=== PATIENT | female | born 1990 | race Caucasian/White ===

== ENCOUNTER 2016-12-05 09:25 | Inpatient (IN) | payer OTHER ==
[2016-12-05 10:30] LABS: CREATININE,RANDOM URINE 213 mg/dL
--- NOTE | 2016-12-05 14:00 | US ---
OB FOLLOW UP COMPARISON: None. HISTORY: 26 years old. Assess for intrauterine growth retardation. Check amniotic fluid index. Gestational age 36 weeks 6 days. FINDINGS: Gestation: Single. Position: Cephalic. Placenta: Posterior. No previa. No abruption. Maturation grade II. Amniotic fluid index: 9.6 cm Biometry BPD: 8.7 cm = 35 weeks 0 days. 15th percentile HC: 31.2 cm = 34 weeks 6 days. 2nd percentile AC: 31.5 cm = 35 weeks 3 days 23rd percentile FL: 6.5 cm = 33 weeks 3 days. Less than 2nd percentile. Ultrasound mean gestational age: 34 weeks 5 days Estimated weight: 2516 +/- 377 g (24th percentile based on gestational age, 62nd percentile based on ultrasound). Ultrasound EDC: 01/11/2017. Heart rate: 141 bpm IMPRESSION: 1. Average ultrasound age 34 weeks 5 days, compared to 36 weeks 6 days obtained initially. Estimated weight 24th percentile based on gestational age. The results were discussed with Angelica Napoles M.D., 12/05/2016 at 13:55
[2016-12-05] MEDS: GUAIFENESIN-DEXTROMETHORPHAN 100/10 MG/5 ML (120 ML BOT) PO PRN ×2 (14:36→22:54)
[2016-12-05] MEDS ORDERED: SODIUM CHLORIDE 0.9% FLUSH 10 ML ONE (14:57)
[2016-12-05] MEDS ORDERED: IV START KIT ONE ×2 (14:57→19:34)
[2016-12-05] MEDS ORDERED: DINOPROSTONE 10 MG SUP VG ONE (19:01)
[2016-12-05] MEDS ORDERED: LACTATED RINGERS 1,000 ML ONE (19:35)
[2016-12-05] MEDS ORDERED: OXYTOCIN 10 UNITS/ML VIAL ONE (19:35)
[2016-12-05] MEDS ORDERED: LIDOCAINE Viscous 2% 15 ML UDCUP ONE (19:36)
[2016-12-05] MEDS ORDERED: PUMP TUBING ONE (19:36)
[2016-12-05] MEDS ORDERED: LIDOCAINE 1% (PRES FREE) 30 ML VIAL ONE (19:36)
[2016-12-05] MEDS ORDERED: MINERAL OIL 25 ML BOT ONE (19:36)
[2016-12-05] MEDS ORDERED: OXYTOCIN IN LR 0 ML IV ONE (19:36)
[2016-12-05 20:49] VITALS: BMI 39.4
--- NOTE | 2016-12-05 22:09 | PCMAN ---
OB Admission Note - History : 1 Term: 0 : 0 Abortions (S&E): 0 Livin Gestational Age (weeks): 36 Days (#/7): 6 Admit Cervical Dilation:: 0 Admit Cervical Effacement (%):: 0 Admit Station:: -3 Admit Presentaton:: vtx Membrane Status: Intact Contractions: No Heart Rate:: 130 Status:: category 1 EFW:: 2516 Summary of Course:: Uncomplicated with dates calculated by LMP, confirmed by 20 week US until earlier this week when BP sung above her baseline 110/70 to 124/84 and she had developed edema in the last few weeks. Urine protein was 1+ on the dip , sent for M/C ratio and was 57 yesterday so she was asked to return today and her CBC in the office was abnormal with low platelet result so she was sent here for further evaluation. - Labs Blood Type: B (+) positive Rubella Status: Immune GBS Status: Negative Abnormal Labs: None, Other (1 hr GTT 143, 3 hr [phone]) - Review of Systems Headache and blurred vision off and on. NO contractions. - Physical Exam General: Afebrile, No Acute Distress Psych/Mental Status: Mood/Affect Appropriate Neurological: Grossly Intact, Alert, Oriented x 4, Normal Speech HEENT: Atraumatic, PERRLA, EOMI, Mucous membr. moist/pink Lungs: Clear to Auscultation Bilaterally Cardiovascular: Regular Rate and Rhythm, No Murmur Abdomen: Normal Bowel Sounds Genitourinary: Normal Female Genitalia Extremities: Full ROM, Edema (1+ in ankles bilaterally) DTR: Patellar (L): 2+ (Brisk, Normal), Patellar (R): 2+ (Brisk, Normal) Skin: Normal Color, No Rash - Problems (1) 37 weeks gestation of Status: Acute Code: Z3A.37Assessment/Plan: 36 6/7 on admit, GBS negative. Induction with Prostaglandin to start, then selection of further medication to follow. Expecting an (2) Pre-eclampsia affecting , antepartum Status: Acute Code: O14.90Assessment/Plan: Mild in severity at this time with normal PIH panel but abnormal M/C ratio 2 days ago. Decision made for induction so 24 hour urine was cancelled. Will repeat PIH panel in am
[2016-12-05] MEDS: ACETAMINOPHEN 500 MG TABLET PO PRN (22:54)
[2016-12-06] MEDS: ZOLPIDEM TARTRATE 5 MG TABLET PO PRN ×2 (00:03→23:22)
[2016-12-06] MEDS: GUAIFENESIN-DEXTROMETHORPHAN 100/10 MG/5 ML (120 ML BOT) PO PRN ×2 (05:03→17:33)
[2016-12-06] MEDS: ACETAMINOPHEN 500 MG TABLET PO PRN ×2 (05:03→17:35)
[2016-12-06 06:47] LABS: ABSOLUTE NEUTROPHIL COUNT 8.8 K/mm3 (1.8-7.7); BASO # 0.1 K/mm3 (0.0-0.2); BASO % 0.5 % (0.2-1.0); EOS # 0.2 (0.0-0.5); EOS % 1.2 % (0.9-2.9); HEMATOCRIT 36.6 % (37.0-47.0); HEMOGLOBIN 12.2 gm/l (12.0-16.0); IMM NEUT # 0.1 K/mm3 (0-0.2); IMM NEUT% 0.6 % (0-1); LYMPH # 2.7 (1.0-4.8); LYMPH % 21.5 % (15-45); MEAN CELL VOLUME 89.1 fl (81.0-99.0); MEAN CORPUSCULAR HEMOGLOBIN 29.7 pg (27.0-31.0); MEAN CORPUSCULAR HGB CONC 33.3 g/dl (33.0-37.0); MONO # 0.7 (0.0-0.8); MONO % 5.8 % (4-12); NEUT % 70.4 % (43-75); PLATELET COUNT 141 K/mm3 (130-400); RED CELL DISTRIBUTION WIDTH 12.7 % (11.5-14.5)
[2016-12-06 07:07] LABS: ALBUMIN 3.2 gm/dL (3.5-5.7); CALCIUM 8.9 mg/dL (8.6-10.3)
[2016-12-06] MEDS ORDERED: MISOPROSTOL 25 MCG TABLET ONE (10:42)
[2016-12-06] MEDS: MISOPROSTOL 25 MCG TABLET VG SCH ×2 (16:14→20:40)
[2016-12-06] MEDS: SERTRALINE HCL 50 MG TABLET PO SCH (18:58)
[2016-12-07] MEDS: ACETAMINOPHEN 500 MG TABLET PO PRN (07:33)
[2016-12-07] MEDS: GUAIFENESIN-DEXTROMETHORPHAN 100/10 MG/5 ML (120 ML BOT) PO PRN (07:33)
[2016-12-07] MEDS: SERTRALINE HCL 50 MG TABLET PO SCH (09:48)
[2016-12-07] MEDS: MISOPROSTOL 25 MCG TABLET VG SCH (09:54)
[2016-12-07 12:06] LABS: CREATININE,RANDOM URINE 156 mg/dL
[2016-12-07 12:39] LABS: ABSOLUTE NEUTROPHIL COUNT 12.8 K/mm3 (1.8-7.7); BASO # 0.1 K/mm3 (0.0-0.2); BASO % 0.3 % (0.2-1.0); EOS # 0.1 (0.0-0.5); EOS % 0.5 % (0.9-2.9); HEMATOCRIT 38.2 % (37.0-47.0); HEMOGLOBIN 12.8 gm/l (12.0-16.0); IMM NEUT # 0.1 K/mm3 (0-0.2); IMM NEUT% 0.6 % (0-1); LYMPH # 1.9 (1.0-4.8); LYMPH % 12.3 % (15-45); MEAN CELL VOLUME 89.3 fl (81.0-99.0); MEAN CORPUSCULAR HEMOGLOBIN 29.9 pg (27.0-31.0); MEAN CORPUSCULAR HGB CONC 33.5 g/dl (33.0-37.0); MEAN PLATELET VOLUME 14.5 fl (7.4-10.4); MONO # 0.7 (0.0-0.8); MONO % 4.7 % (4-12); NEUT % 81.6 % (43-75); PLATELET COUNT 160 K/mm3 (130-400); RED CELL DISTRIBUTION WIDTH 12.7 % (11.5-14.5)
[2016-12-07 12:49] LABS: ALBUMIN 3.5 gm/dL (3.5-5.7); CALCIUM 9.5 mg/dL (8.6-10.3); URIC ACID 5.1 mg/dL (2.3-7.6)
[2016-12-07] MEDS ORDERED: LACTATED RINGERS 500 ML IV ONE (13:05)
--- NOTE | 2016-12-07 13:26 | PDOC36 ---
Provider Note Subject: 10:00 progress note: S/ Slept well last night, lower abdominal cramping. Resistant to vaginal checks from nursing staff. O/ VSS BP improved, afebrile. UC irreg. CX 1cm/75-80%/-1 FHR BL 130s, moderate variability 50 mcg Misoprostol placed intravaginally. A/ Slow progress with induction P/ Hoping to progress to amniotomy within a few hours. Watch vitals and labs. Hai Napoles MD
[2016-12-07] MEDS ORDERED: LIDOCAINE Viscous 2% 15 ML UDCUP TP ONE (15:08)
[2016-12-07] MEDS: LACTATED RINGERS 1,000 ML IV SCH ×3 (15:22→20:14)
[2016-12-07] MEDS ORDERED: FENTANYL 100 MCG/2 ML VIAL IV ONE (16:22)
[2016-12-07] MEDS ORDERED: CEFAZOLIN SODIUM 2 GRAM DUPLEX 50 ML IV ONE (16:23)
[2016-12-07] MEDS ORDERED: SPINAL PROCEDURAL TRAY 1 EACH ONE (16:33)
[2016-12-07] MEDS ORDERED: MORPHINE SULFATE (DURAMORPH) 1 MG/ML 10ML AMP ONE (16:33)
[2016-12-07] MEDS ORDERED: BUPIVACAINE 0.75% SPINAL AMPUL 2 ML ONE (16:33)
--- NOTE | 2016-12-07 16:36 | PDOC36 ---
Provider Note Subject: S/ Contractions becoming much more painful, patient asking about pain medicine and epidural. O/ BP 139/71, DTR 2-3+, 1 beat clonus(stable) FHR BL 150-155, minimal variability, variable decels, category 2 Cx 1cm/85 %/-1 AROM clear A/Slow progress with signs on strip of intolerance, will watch carefully P/IV Fentanyl for pain if needed, will attempt to get her to 4 cm before epidural. MD Damien
[2016-12-07] MEDS ORDERED: ONDANSETRON 4 MG/2ML 2 ML VIAL IV PRN (16:45)
[2016-12-07] MEDS ORDERED: NALBUPHINE HCL 20 MG/ML AMP IV PRN (16:45)
[2016-12-07] MEDS ORDERED: DIPHENHYDRAMINE HCL 50 MG/1 ML VIAL IV PRN ×2 (16:45→18:49)
[2016-12-07] MEDS ORDERED: NALOXONE HCL 0.4 MG/ML VIAL IV PRN (16:45)
[2016-12-07] MEDS ORDERED: HYDROMORPHONE HCL 2 MG/ML SYRINGE IV PRN (16:45)
[2016-12-07] MEDS ORDERED: HYDROMORPHONE HCL 1 MG/ML SYRINGE IV PRN (16:45)
[2016-12-07] MEDS ORDERED: PROMETHAZINE HCL 25 MG/ML VIAL IM PRN (16:45)
[2016-12-07] MEDS ORDERED: CEFAZOLIN SODIUM 2 GRAM DUPLEX 2 G in Premix (D5W) 50 ml 1 EACH IV PRN (16:54)
--- NOTE | 2016-12-07 16:54 | PDOC1 ---
- HPI 26 year old at 37 1/7 weeks gestational age by LMP, confirmed with 20-week ultrasound who desires primary LTCS for means of delivery due to intolerance of labor at very minimal stage of dilation in her induction process. She has been induced with both Cervidil and cytotec and reached 1cm/80% . AROM done and then we began to see repetitive variable decels and the HR baseline has been into the 150-160 range up form 130 baseline on admission. Her course has been followed for the following problem list. - Problem List (1) 37 weeks gestation of Status: Acute (2) Pre-eclampsia affecting , antepartum Status: Acute (3) Anxiety associated with depression Status: Acute SOCIAL HISTORY: Marital status: , FOB involved: yes, No Tobacco, alcohol use, or drug use. FAMILY HISTORY: No congenital abnormalities or twins. Home Medications: Zoloft 50 mg daily Allergies/Adverse Reactions: Allergies No Known Allergies Allergy (Verified 12/05/16 16:48) - Labs & Studies LABS: Blood Type-B pos, Antibody [NEG], Rubella [Immune], RPR-[Negative], HbsAg-[Negative], HIV-[Negative] Pap neg, GC/Chlamydia-[Negative], UA-[Negative], Quad/Integrated Screen-[Negative], 1 hr GTT-143, 3 hr GTT [phone] GBS-neg REVIEW OF DATES: LMP 03/22/16 -> [facility] 12/27/16 Ultrasound on 08/14/16 @ 20 2/7 WGA -> EDC 12/30/16 Ultrasound on 12/05/16 @ 34 5/7 WGA -> EDC 01/11/17-24 percentile - Physical Exam General: Afebrile, Moderate Distress Psych/Mental Status: Mood/Affect Appropriate, Anxious, Tearful Neurological: Grossly Intact, Alert, Oriented x 4, Normal Speech, Cranial Nerves 3-12 Intact, Other (DTR 2-3+) HEENT: Atraumatic, PERRLA, EOMI, Mucous membr. moist/pink Lungs: Clear to Auscultation Bilaterally Cardiovascular: Regular Rate and Rhythm, No Murmur Abdomen: Normal Bowel Sounds Genitourinary: Normal Female Genitalia Rectal Exam: Deferred Extremities: Full ROM, Edema (3+) Deep Tendon Reflexes: Patellar (R): 3+ (More brisk), Achilles (L): 3+ (More brisk) Skin: Normal Color, Warm, Dry, Intact, No Rash - Assessment & Plan 23 y/o at 37 1/7 weeks by [LMP] who will have primary LTCS due to intolerance of labor in preeclamptic female. Discussed with patient the risks of including infection, bleeding possibly requiring blood transfusion and even hysterectomy, damage to underlying structures including bowel, bladder, uterus, tubes, ovaries, baby, and ureter, as well as will have a scar and can have persistent pain and numbness at incision site. The patient agrees to proceed with LTCS and will arrive at scheduled time for preop. She was advised to avoid any food or drink 8 hours prior to scheduled surgery.
[2016-12-07] MEDS ORDERED: EPHEDRINE SULFATE UD SYR 25 MG 25 MG/5 ML SYRINGE IV ONE (17:04)
[2016-12-07] MEDS ORDERED: OXYTOCIN 10 UNITS/ML VIAL ONE (17:09)
[2016-12-07] MEDS ORDERED: ONDANSETRON 4 MG/2ML 2 ML VIAL ONE (18:01)
--- NOTE | 2016-12-07 18:33 | PCMBPN ---
Brief Post Op Note: Date of Procedure: 12/07/16 Start Time: 1705, delivery 170 Preoperative Diagnosis: 1. 37 week 2. Preeclampsia 3. intolerance to labor 4. Depression with anxiety Postoperative Diagnosis: 1. [Same] Procedure: Primary Low Transverse Section Surgeon: Angelica Napoles MD Assist: Carlos Ledesma MD Anesthesia: Spinal Findings: Viable infant male. Normal uterus, tubes and ovaries Condition: stable Complications: none IV Fluids: 1500 mLs of LR Urine Output: 100 mLs Estimated Blood Loss: 600 mLs Tourniquet Time: [N/A] Specimens: [N/A] Implants: N/A Drains: [N/A]
--- NOTE | 2016-12-07 18:48 | PDOC37 ---
Procedure: Primary Low Transverse Section Date of Procedure: 12/07/16 Start Time: 1705 Preoperative Diagnosis: 1. 37 week intrauterine . 2. Preeclampsia 3. intolerance to labor 4. Depression with anxiety Postoperative Diagnosis: Same Surgeon: Angelica Napoles MD Assist: Carlos Ledesma MD Indication for Procedure: 26 year old, at 37 weeks 1 days with preeclampsia, admitted for induction and got several doses of Misoprostol after an initial Cervidil the first night. She made minimal progress and earlier today the heart tone baseline went from 130 to 150 and there were some occ variable decles. W tried IVF bolus and it seemed to improve. I performed an amnniotomy and the decels worsened. Given her poor progress, the intolerance and she was not tolerating labor pain at all so she requested the as well, decision made for the surgery. In the OR the heart tones were 60 and going down just before she was prepped so the surgery was hastened and the baby was delivered within 2 minutes. Anesthesia: Spinal with Duramorph Complications: None Estimated Blood Loss: 600 mLs IV Fluids: 1500 mLs of LR Medications: 2 gm of Ancef for routine prophylaxis. 40 units of Pitocin. Urine Output: 100 mLs of clear urine Findings: Fluid clear. Normal uterus, ovaries, and tubes. Procedure: The patient was taken to the operating room where spinal anesthesia was found to be adequate. She was then prepared and draped in the normal sterile fashion in the dorsal supine position with a leftward tilt. A timeout was performed. A Pfannensteil skin incision was then made with the scalpel and carried through to the underlying layer of fascia with the scalpel. The fascia was incised in the midline and the incision extended laterally with the Almendarez scissors. The superior aspect of the fascial incision was then grasped with the Smui clamps, elevated, and the underlying rectus muscles dissected off bluntly and sharply where needed. Attention was then turned to the inferior aspect of the incision which, in a similar fashion, was grasped, tented up with the Sumi clamps, and the rectus muscle dissected off bluntly and sharply with Almendarez scissors. The rectus muscles were then in the midline, and the peritoneum was identified and entered bluntly. The peritoneal incision was then extended by stretching with good visualization of the bladder. The bladder blade was then inserted and the vesicouterine peritoneum identified, grasped with pick-ups and entered sharply with the Metzenbaum scissors. The incision was then extended laterally and the bladder flap created digitally. The bladder blade was then reinserted and the lower uterine segment incised in a transverse fashion with the scalpel. The uterine incision was then extended laterally by pulling superolaterally on both sides. Membranes were ruptured and fluid was clear. The bladder blade was removed the infant's head was flexed out of OA position and delivered atraumatically. The nose and mouth were suctioned with bulb suction and the cord was clamped and cut. The was handed off to the waiting bell staff. Cord gases were sent. The placenta was then delivered with gentle cord traction. The uterus was then exteriorized and cleared of all clots and debris. The uterine incision was repaired with 0 vicryl in a running, locked fashion. A second layer of the same suture was used in an imbricating fashion to obtain excellent hemostasis with 2 figure of eigt sutures needed to finalize that. The gutters were cleared of all clots. The uterus was returned to the abdomen. The peritoneum was closed with vicryl. The fascia was reapproximated with 0 Vicryl in a running fashion. The skin was closed with vel. The patient tolerated the procedure well. Sponge, lap and needle counts were correct times three. A debriefing was held at the end of the procedure with anesthesia and nursing staff. The patient was taken to the recovery room in stable condition. Ben Napoles MD
[2016-12-07] MEDS ORDERED: OXYCODONE/ACETAMINOPHEN 5/325 MG TABLET PO PRN (18:49)
[2016-12-07] MEDS ORDERED: OXYCODONE HCL 5 MG TABLET PO PRN (18:49)
[2016-12-07] MEDS ORDERED: LANOLIN 50 APPLIC/7G TUBE TP PRN (18:49)
[2016-12-07] MEDS: DOCUSATE SODIUM 100 MG CAPSULE PO SCH (20:30)
[2016-12-08] MEDS: LACTATED RINGERS 1,000 ML IV SCH ×3 (01:14→14:55)
[2016-12-08] MEDS: IBUPROFEN 800 MG TABLET PO PRN ×3 (05:07→17:47)
[2016-12-08 06:31] LABS: HEMATOCRIT 32.8 % (37.0-47.0); MEAN CELL VOLUME 88.6 fl (81.0-99.0); MEAN CORPUSCULAR HEMOGLOBIN 29.7 pg (27.0-31.0); MEAN CORPUSCULAR HGB CONC 33.5 g/dl (33.0-37.0); RED CELL DISTRIBUTION WIDTH 12.6 % (11.5-14.5)
[2016-12-08] MEDS ORDERED: IV START KIT ONE (06:48)
[2016-12-08 06:52] LABS: ALBUMIN 2.8 gm/dL (3.5-5.7); CALCIUM 8.7 mg/dL (8.6-10.3); URIC ACID 5.3 mg/dL (2.3-7.6)
[2016-12-08] MEDS ORDERED: GUAIFENESIN-DEXTROMETHORPHAN 100/10 MG/5 ML (120 ML BOT) PO PRN (09:57)
[2016-12-08] MEDS: SERTRALINE HCL 50 MG TABLET PO SCH (10:10)
[2016-12-08] MEDS: DOCUSATE SODIUM 100 MG CAPSULE PO SCH ×2 (10:10→21:08)
[2016-12-08] MEDS: PRENATAL VIT/FE FUMARATE/FA 1 TABLET PO SCH (10:10)
[2016-12-08] MEDS: MENTHOL PO PRN ×2 (10:24→14:42)
--- NOTE | 2016-12-08 11:37 | PDOC44 ---
- Subjective Day: 1 Reports Flatus, Reports Pain Tolerable, Reports , Reports Lochia Light, Reports Tolerating Clear Liquids, Denies Nausea - Objective Temp Pulse Resp BP Pulse Ox 98.4 F 81 18 133/73 100 12/08/16 05:09 12/08/16 09:30 12/08/16 09:30 12/08/16 09:30 12/07/16 21:18 Lab Results 12/08/16 12/07/16 05:15 12:05 WBC 17.5 H 15.7 H RBC 3.70 L 4.28 Hgb 11.0 L 12.8 Hct 32.8 L 38.2 Plt Count 133 160 Creatinine 0.6 0.7 Uric Acid 5.3 5.1 AST 15 11 L ALT 8 10 Lactate Dehydrogenase 124 L 12/08/16 12/07/16 05:15 12:05 Neut % (Auto) 81.6 H Lymph % (Auto) 12.3 L Absolute Neuts (auto) 12.8 H Eosinophils % 0.5 L Sodium 132 L Estimated GFR 123 H Glucose 129 H Alkaline Phosphatase 113 H 149 H Total Protein 5.6 L Albumin 2.8 L Current Medications Generic Name Dose Route Start Last Admin Trade Name Freq PRN Reason Stop Dose Admin Acetaminophen/Hydrocodone Bitart 1 - 2 tab 12/08/16 10:06 [place] 5/325 PO Q4H PRN Pain Diphenhydramine HCl 25 - 50 mg 12/07/16 16:45 12/07/16 21:21 Benadryl IV 12/08/16 16:48 25 mg Q4H PRN Administration Itching Diphenhydramine HCl 25 - 50 mg 12/08/16 16:49 Benadryl PO Q6H PRN Itching (Mild/Moderate) Diphenhydramine HCl 25 - 50 mg 12/08/16 16:49 Benadryl IV Q6H PRN Itching (Severe) Docusate Sodium 100 mg 12/07/16 21:00 12/08/16 10:10 Colace PO 100 mg BID APURVA Administration Emollient Ointment 1 applic 12/07/16 18:49 12/08/16 01:14 [id number] TP 1 applic PRN PRN Administration sore nipples Guaifenesin/Dextromethorphan 10 ml 12/08/16 09:57 Robitussin Dm Syrup PO Q6H PRN Cough Hydromorphone HCl 0.5 - 2 mg 12/07/16 16:45 Dilaudid IV 12/08/16 16:48 Q1H PRN Pain (Breakthrough) Hydromorphone HCl 0.5 - 2 mg 12/07/16 16:45 Dilaudid IV 12/08/16 16:48 Q1H PRN Pain Lactated Ringer's 1,000 mls @ 100 mls/hr 12/07/16 17:00 12/08/16 10:50 Lactated Ringers IV Not Given .Q10H APURVA Ibuprofen 800 mg 12/07/16 18:49 12/08/16 05:07 Motrin PO 800 mg Q6H PRN Administration Pain Menthol 1 each 12/08/16 09:57 12/08/16 10:24 [place] PO 1 each Q2-4H PRN Administration Cough Multivi/Iron Carb/Fe Sulf/FA/Prenat 1 tab 12/08/16 09:00 12/08/16 10:10 Plus PO 1 tab DAILY APURVA Administration Nalbuphine HCl 1 - 5 mg 12/07/16 16:45 Nubain IV 12/08/16 16:48 Q4H PRN Itching Naloxone HCl 0.2 - 0.4 mg 12/07/16 16:45 Narcan IV 12/08/16 16:48 Q5M PRN Ondansetron HCl 4 mg 12/07/16 16:45 Zofran IV 12/08/16 16:48 Q6H PRN Nausea/Vomiting Promethazine HCl 12.5 mg 12/07/16 16:45 Phenergan IM 12/08/16 16:48 Q4H PRN Nausea/Vomiting Promethazine HCl 25 mg 12/08/16 16:49 Phenergan IM Q6H PRN Nausea/Vomiting Sertraline HCl 50 mg 12/06/16 09:00 12/08/16 10:10 Zoloft PO 50 mg DAILY APURVA Administration Sodium Chloride 10 ml 12/05/16 17:00 12/08/16 10:51 Normal Saline 10ml Flush IV Not Given Q8HR APURVA Sodium Chloride 10 ml 12/07/16 18:49 Normal Saline 10ml Flush IV PRN PRN IV Flush - Physical Exam General: Afebrile, No Acute Distress Psych/Mental Status: Mood/Affect Appropriate, Bonding Well Neurological: Grossly Intact, Alert, Oriented x 4, Normal Speech HEENT: Atraumatic, PERRLA, EOMI, Mucous membr. moist/pink Lungs: Clear to Auscultation Bilaterally Cardiovascular: Regular Rate and Rhythm, No Murmur Breast: Soft, Nipples Intact, No Nipples Cracked Fundus: Firm, Midline, Below Umbilicus Abdomen: Normal Bowel Sounds Genitourinary: Normal Female Genitalia Lochia: Light Extremities: Full ROM, No Edema, No Tenderness Skin: Normal Color, Warm, Dry, Intact, No Rash Wound OFFICE BOOKKEEPER: Dressing Clean/Dry/Intact, Well Approximated, Peter Intact, No Drainage, No Erythema - Problems:Assessment/Plan (1) Pre-eclampsia affecting , antepartum Status: AcuteAssessment/Plan: BP mildly elevated at times but appears to be improving. Good urine output, DTR normal. Labs look stable today. Continue to monitor, no need to repeat labs. (2) Anxiety associated with depression Status: AcuteAssessment/Plan: stable on Zoloft (3) delivery due to maternal disorder, delivered, curr hospitaliz Status: AcuteAssessment/Plan: stable post op day 1, continue routine care as she is doing very well. Disposition: Stable, Other (likely discharge at POD 3)
[2016-12-08] MEDS: HYDROCODONE/ACETAMINOPHEN 5/325MG TABLET PO PRN ×3 (14:43→22:27)
[2016-12-08] MEDS ORDERED: DIPHENHYDRAMINE HCL 50 MG/1 ML VIAL IV PRN (16:49)
[2016-12-08] MEDS ORDERED: DIPHENHYDRAMINE HCL 25 MG CAPSULE PO PRN (16:49)
[2016-12-08] MEDS ORDERED: PROMETHAZINE HCL 25 MG/ML VIAL IM PRN (16:49)
[2016-12-09] MEDS: IBUPROFEN 800 MG TABLET PO PRN ×4 (00:24→18:10)
[2016-12-09] MEDS: LACTATED RINGERS 1,000 ML IV SCH ×2 (00:30→12:57)
[2016-12-09] MEDS: HYDROCODONE/ACETAMINOPHEN 5/325MG TABLET PO PRN ×6 (02:44→22:08)
[2016-12-09] MEDS: DOCUSATE SODIUM 100 MG CAPSULE PO SCH ×2 (07:24→21:31)
[2016-12-09] MEDS: SERTRALINE HCL 50 MG TABLET PO SCH (07:25)
[2016-12-09] MEDS: PRENATAL VIT/FE FUMARATE/FA 1 TABLET PO SCH (07:25)
--- NOTE | 2016-12-09 14:59 | PDOC44 ---
- Subjective Day: 1 Reports Flatus, Reports Pain Tolerable, Reports , Reports Tolerating Regular Diet, Denies Nausea, Denies Vomiting - Objective Temp Pulse Resp BP Pulse Ox 98.5 F 91 20 122/79 100 12/09/16 07:50 12/09/16 03:38 12/09/16 08:51 12/09/16 03:38 12/07/16 21:18 Current Medications Generic Name Dose Route Start Last Admin Trade Name Freq PRN Reason Stop Dose Admin Acetaminophen/Hydrocodone Bitart 1 - 2 tab 12/08/16 10:06 12/09/16 13:30 [place] 5/325 PO 1 tab Q4H PRN Administration Pain Diphenhydramine HCl 25 - 50 mg 12/08/16 16:49 Benadryl PO Q6H PRN Itching (Mild/Moderate) Diphenhydramine HCl 25 - 50 mg 12/08/16 16:49 Benadryl IV Q6H PRN Itching (Severe) Docusate Sodium 100 mg 12/07/16 21:00 12/09/16 07:24 Colace PO 100 mg BID APRUVA Administration Emollient Ointment 1 applic 12/07/16 18:49 12/08/16 01:14 [id number] TP 1 applic PRN PRN Administration sore nipples Guaifenesin/Dextromethorphan 10 ml 12/08/16 09:57 Robitussin Dm Syrup PO Q6H PRN Cough Lactated Ringer's 1,000 mls @ 100 mls/hr 12/07/16 17:00 12/09/16 12:57 Lactated Ringers IV Not Given .Q10H APURVA Ibuprofen 800 mg 12/07/16 18:49 12/09/16 13:31 Motrin PO 800 mg Q6H PRN Administration Pain Menthol 1 each 12/08/16 09:57 12/08/16 14:42 [place] PO 1 each Q2-4H PRN Administration Cough Multivi/Iron Carb/Fe Sulf/FA/Prenat 1 tab 12/08/16 09:00 12/09/16 07:25 Plus PO 1 tab DAILY APURVA Administration Promethazine HCl 25 mg 12/08/16 16:49 Phenergan IM Q6H PRN Nausea/Vomiting Sertraline HCl 50 mg 12/06/16 09:00 12/09/16 07:25 Zoloft PO 50 mg DAILY APURVA Administration Sodium Chloride 10 ml 12/05/16 17:00 12/09/16 04:20 Normal Saline 10ml Flush IV Not Given Q8HR APURVA Sodium Chloride 10 ml 12/07/16 18:49 12/08/16 14:44 Normal Saline 10ml Flush IV 10 ml PRN PRN Administration IV Flush - Physical Exam General: Afebrile, No Acute Distress Psych/Mental Status: Mood/Affect Appropriate, Bonding Well Neurological: Alert, Oriented x 4 Lungs: Clear to Auscultation Bilaterally Cardiovascular: Regular Rate and Rhythm Breast: Nipples Intact Fundus: Firm, Midline Extremities: Full ROM, No Edema, No Tenderness Skin: Normal Color, Warm, Dry, Intact, No Rash Wound STRUCTURER: Dressing Clean/Dry/Intact, Well Approximated - Problems:Assessment/Plan (1) Pre-eclampsia affecting , antepartum Status: AcuteAssessment/Plan: All HTN appears to have resolved. Good urine output, DTR normal. Continue to monitor, no need to repeat labs as they trended down through 12/08. Pt encouraged to cont. ambulating and elevating legs at night above her heart level. (2) care following delivery Status: AcuteAssessment/Plan: POD #1 s/p PLTCS for failure to progress in the setting of IOL for mild preE - incision clean and dry - ambulating - toileting on her own - likely d/c on 12/10/16 afternoon (Dr. Napoles to return and process the discharge ) Disposition: Stable
[2016-12-09] MEDS: MAGNESIUM HYDROXIDE 30 ML UDCUP PO PRN (21:31)
[2016-12-10] MEDS: IBUPROFEN 800 MG TABLET PO PRN ×3 (00:10→15:57)
[2016-12-10] MEDS: HYDROCODONE/ACETAMINOPHEN 5/325MG TABLET PO PRN ×4 (02:16→15:56)
[2016-12-10] MEDS: PRENATAL VIT/FE FUMARATE/FA 1 TABLET PO SCH ×2 (10:18→18:59)
[2016-12-10] MEDS: DOCUSATE SODIUM 100 MG CAPSULE PO SCH ×2 (10:19→18:59)
[2016-12-10] MEDS: SERTRALINE HCL 50 MG TABLET PO SCH ×2 (10:19→18:59)
[2016-12-10] MEDS: MAGNESIUM HYDROXIDE 30 ML UDCUP PO PRN (10:19)
[2016-12-10 15:09] VITALS: BP 140/90
--- NOTE | 2016-12-10 18:16 | PDOC39B ---
Hospital Course: ADMIT DATE: 12/05/16 DISCHARGE DATE: 12/10/16 ADMISSION DIAGNOSES: 37 week , Preeclampsia PROCEDURES: Induction with Prostaglandin, amniotomy, Primary Low Transverse Section HISTORY OF PRESENT ILLNESS: 26 year old G1 T0 L0 at 37 weeks 1 days presenting with preeclampsia, induction started with cervidil wiith minimal result so changed to Cytotec and started having contractions, eventually was able to do an amniotomy but intolerance signs started to occur and worsened with passage of time. Decision made for primary with patient agreement. HOSPITAL COURSE: The patient had an uncomplicated surgery and post operative course. Her BP is borderline elevated with activity so she was advised to be aware of that and keep her activity level reduced to allow improvement of her condition over the next week. By day of discharge the patient is ambulating, eating, voiding, and passing flatus without difficulty. Pain is controlled and lochia is appropriate. She is [] - Physical Exam Vital Signs: Temp Pulse Resp BP Pulse Ox 97.8 F 82 20 140/90 100 12/10/16 15:04 12/10/16 15:04 12/10/16 15:04 12/10/16 15:04 12/07/16 21:18 General: Afebrile, No Acute Distress Psych/Mental Status: Mood/Affect Appropriate Neurological: Grossly Intact, Alert, Oriented x 4, Normal Speech, Cranial Nerves 3-12 Intact HEENT: Atraumatic, PERRLA, EOMI, Mucous membr. moist/pink Lungs: Clear to Auscultation Bilaterally Cardiovascular: Regular Rate and Rhythm, No Murmur Breast: Soft, Nipples Intact, Other (using frederick) Fundus: Firm, Midline, Below Umbilicus Genitourinary: Normal Female Genitalia Lochia: Light Extremities: Full ROM, No Edema Deep Tendon Reflexes: Patellar (L): 2+ (Brisk, Normal), Patellar (R): 2+ (Brisk , Normal) Skin: Normal Color, Warm, Dry, Intact, No Rash Wound: Dressing Clean/Dry/Intact, Well Approximated, Other (vel removed steri strips placed) - Discharge Diagnosis (1) Pre-eclampsia affecting , antepartum Status: AcuteAssessment/Plan: stable, warning signs for home discussed. (2) Anxiety associated with depression Status: AcuteAssessment/Plan: stable on Zoloft (3) delivery due to maternal disorder, delivered, curr hospitaliz Status: AcuteAssessment/Plan: stable post op 3, discharge home, FU in 2 days. - Discharge Plan Condition: Good Disposition: Home Instruction Forms: Section Discharge Instructions Additional Instructions: BABIES Clinic appointment for 12/13/16, at 1pm. Bring baby ready to nurse. [place] at the front end developer designer of the [facility]. Prescriptions: Ibuprofen [IBUPROFEN 800 MG TABLET (SHF)] 800 mg PO Q6H PRN #30 PRN Reason: Pain Hydrocodone Bit/Acetaminophen [[place] 5/325 MG TABLET (SHF)] 1 - 2 tab PO Q4H PRN #40 PRN Reason: Pain Cholecalciferol (Vitamin D3) [Vitamin D3] 5,000 units PO DAILY #100 capsule Follow-Up: [facility] [Outside] Angelica Napoles MD [Primary Care Provider] - In 7-10 days
[2016-12-10] MEDS: LACTATED RINGERS 1,000 ML IV SCH (18:59)
[2016-12-10] MEDS: MISOPROSTOL 25 MCG TABLET VG SCH ×2 (18:59→19:00)
== END 2016-12-10 20:03 | disposition home or self-care (01) | DRG 766 ==
LOC: FBCOUT 09:25 → FBC 09:26 → FBCOUT 12:03 → FBC 12:04 → OBSVTOIN 12:04 → FBC 12-07 17:19
PROVIDERS: ADMIT Family Medicine; ATTEND Family Medicine
PROC: 3E0P7GC Introduction of Other Therapeutic Substance into Female Reproductive, Via Natural or Artificial Opening (ICD-10-PCS; 2016-12-05)
PROC: 10907ZC Drainage of Amniotic Fluid, Therapeutic from Products of Conception, Via Natural or Artificial Opening (ICD-10-PCS; 2016-12-06)
PROC: 10D00Z1 Extraction of Products of Conception, Low, Open Approach (ICD-10-PCS; principal; 2016-12-09)
DX: O14.04 Mild to moderate pre-eclampsia, complicating childbirth (principal); Z3A.37 37 weeks gestation of pregnancy; Z37.0 Single live birth; O76 Abnormality in fetal heart rate and rhythm complicating labor and delivery; O99.344 Other mental disorders complicating childbirth; F41.8 Other specified anxiety disorders